=== PATIENT | male | born 1960 | race Caucasian/White ===

== ENCOUNTER 2018-08-23 05:19 | Emergency (ER) | payer MEDICAID ==
[~2018-08-23] VITALS: Ht 195.6 cm; Wt 72.3 kg
[~2018-08-23 05:19] MED LIST: AMO250C PO; ASPI-1265 PO; CHOL400T PO; GABA600T2 PO; HYDR-3972 PO; NIFE10CA PO; PENT400T12 PO
[2018-08-23 05:25] VITALS: BP 128/101
[2018-08-23] MEDS ORDERED: CEPH500C5 PO (05:51)
== END 2018-08-23 06:00 | disposition home or self-care (01) ==
LOC: ER 05:19
DX: S92.511A Displaced fracture of proximal phalanx of right lesser toe(s), initial encounter for closed fracture (principal); Z79.82 Long term (current) use of aspirin; Z79.2 Long term (current) use of antibiotics; Z79.899 Other long term (current) drug therapy; W22.8XXA Striking against or struck by other objects, initial encounter; Y93.89 Activity, other specified; Y92.89 Other specified places as the place of occurrence of the external cause; Y99.8 Other external cause status
CPT/HCPCS: 28515; 73660; 99284

== ENCOUNTER 2022-07-20 13:09 | Emergency (ER) | payer MEDICARE, MEDICAID ==
[~2022-07-20] VITALS: Ht 200.7 cm; Wt 79.5 kg
[~2022-07-20 13:09] MED LIST changes: +GABA600T13 PO; -GABA600T2 PO; -PENT400T12 PO; +PENT400T17 PO
[2022-07-20] MEDS ORDERED: oxyCODONE IR 5mg (immed. release) tablet PO ONE (15:05)
[2022-07-20] MEDS ORDERED: ondansetron 4mg rapidly disintigrating tab PO ONE ×2 (15:05→20:00)
[2022-07-20 15:38] LABS: BASOPHILS % (AUTO) 0.5 % (0-1); EOSINOPHILS # (AUTO) 0.2 X10'3 (0-0.9); EOSINOPHILS % (AUTO) 3.5 % (0-6); HEMATOCRIT 39.7 % (42.0-52.0); HEMOGLOBIN 13.5 g/dl (14.0-17.9); LYMPHOCYTES # (AUTO) 1.9 X10'3 (1.1-4.8); LYMPHOCYTES % (AUTO) 29.2 % (21-51); MEAN CORPUSCULAR HEMOGLOBIN 33.7 PG (27.0-31.0); MEAN CORPUSCULAR HGB CONC 33.9 g/dL (33.0-36.5); MEAN CORPUSCULAR VOLUME 99.4 FL (78-98); MEAN PLATELET VOLUME 7.8 FL (7.4-10.4); MONOCYTES # (AUTO) 0.5 X10'3 (0-0.9); MONOCYTES % (AUTO) 7.9 % (2-12); NEUTROPHILS # (AUTO) 3.9 X10'3 (1.8-7.7); NEUTROPHILS % (AUTO) 58.9 % (42-75); PLATELET COUNT 227 X10'3 (140-440); RED BLOOD COUNT 3.99 X10'6 (4.70-6.10); RED CELL DISTRIBUTION WIDTH 14.9 % (11.5-14.5); WHITE BLOOD COUNT 6.6 X10'3 (4.5-11.0)
[2022-07-20 15:46] LABS: ALANINE AMINOTRANSFERASE 22 U/L (12-78); ALBUMIN 3.7 G/DL (3.4-5.0); ALKALINE PHOSPHATASE 66 IU/L (46-116); ANION GAP 9 (8-16); ASPARTATE AMINO TRANSFERASE 18 U/L (10-37); BILIRUBIN,TOTAL 0.2 MG/DL (0.1-1.0); BLOOD UREA NITROGEN 18 MG/DL (7-18); BUN/CREATININE RATIO 13.2 (5.4-32.0); CALCIUM 8.6 MG/DL (8.5-10.1); CHLORIDE 103 MMOL/L (99-107); CREATININE 1.36 MG/DL (0.60-1.10); GLUCOSE 79 MG/DL (70-104); POTASSIUM 4.6 MMOL/L (3.5-5.1); SODIUM 141 MMOL/L (135-145); TOTAL CARBON DIOXIDE 29.5 MMOL/L (24-32); TOTAL PROTEIN 7.3 G/DL (6.4-8.2); eGFR 53 ML/MIN
[2022-07-20] MEDS ORDERED: normal saline 1000ML IV soln IVB ONE (17:50)
[2022-07-20 18:46] VITALS: BP 123/81
[2022-07-20] MEDS ORDERED: MORP30TA PO (19:53)
[2022-07-20] MEDS ORDERED: ONDA4TAB12 PO (19:53)
[2022-07-20] MEDS ORDERED: MORP15TA PO (19:59)
[2022-07-20] MEDS ORDERED: morphine ER 15mg tablet PO PRN (20:00)
== END 2022-07-20 21:19 | disposition home or self-care (01) ==
LOC: ER 13:10
DX: I73.9 Peripheral vascular disease, unspecified (principal); I73.1 Thromboangiitis obliterans [Buerger's disease]; M79.671 Pain in right foot; F17.200 Nicotine dependence, unspecified, uncomplicated; Z98.890 Other specified postprocedural states; Z72.89 Other problems related to lifestyle; Z79.2 Long term (current) use of antibiotics; Z79.82 Long term (current) use of aspirin; Z79.899 Other long term (current) drug therapy
CPT/HCPCS: 36415; 73610; 73630; 80053; 85025; 85651; 93922; 93926; 96360; 99285; J7030

== ENCOUNTER 2022-08-04 13:37 | Emergency (ER) | payer MEDICARE, MEDICAID ==
[~2022-08-04] VITALS: Ht 200.7 cm; Wt 77.3 kg
[~2022-08-04 13:37] MED LIST changes: +MORP15TA PO; +ONDA4TAB12 PO
[2022-08-04 13:54] VITALS: BP 139/89
== END 2022-08-04 15:53 | disposition left against medical advice (07) ==
LOC: ER 13:37
DX: M79.671 Pain in right foot (principal); M79.672 Pain in left foot; Z53.21 Procedure and treatment not carried out due to patient leaving prior to being seen by health care provider

== ENCOUNTER 2025-08-09 12:27 | Outpatient (CLI) | payer MEDICARE ==
[~2025-08-09 12:27] MED LIST changes: +GABA-1405 PO; -GABA600T13 PO; -MORP15TA PO; +ONDA-243 PO; -ONDA4TAB12 PO
--- NOTE | 2025-08-09 13:34 | RADIOLOGY REPORT ---
Indication: NICOTINE DEPENDENCE, CIGARETTES Technique: CT axial images of the chest are obtained without contrast. Coronal and sagittal reformats were obtained. Radiation Dose Information: CTDI volume is 2 mGy. Dose-length product is 86 mGy*cm Comparison: None FINDINGS: Trachea patent. No pneumothorax. Pulmonary emphysematous changes. Left upper lobe lingular segment atelectasis. Heart normal in size. Coronary artery calcification disease. No supraclavicular, axillary lymphadenopathy. Multiple hepatic cysts measuring up to 1.7 cm. No aggressive osseous process. [id number] thoracic degenerative disc disease. IMPRESSION: Pulmonary emphysematous changes. No pulmonary airspace consolidation. No significant pulmonary nodular airspace disease. Coronary artery calcification disease. Other findings as described.
== END 2025-08-09 23:59 | disposition home or self-care (01) ==
LOC: RAD 12:27
PROVIDERS: ATTEND Family Medicine
DX: Z12.2 Encounter for screening for malignant neoplasm of respiratory organs (principal); I25.10 Atherosclerotic heart disease of native coronary artery without angina pectoris; J43.9 Emphysema, unspecified; F17.210 Nicotine dependence, cigarettes, uncomplicated
CPT/HCPCS: 71271